=== PATIENT | female | born 1985 | race Two or more races ===

== ENCOUNTER 2021-03-29 08:45 | Outpatient (REF) | payer OTHER, SELFPAY ==
--- NOTE | ~2021-03-29 | MR_ITS ---
EXAMINATION: MR BRAIN WITHOUT AND WITH CONTRAST MR ORBITS WITHOUT AND WITH CONTRAST CLINICAL INFORMATION: Visual field loss. COMPARISON: None available. TECHNIQUE: MRI of the brain and orbits was obtained using routine sequences without and following the administration of 5.5 mL of Gadavist intravenous contrast. FINDINGS: No focal restricted diffusion is demonstrated to suggest acute or subacute cerebral ischemia. No evidence of acute or chronic hemorrhagic products on heme-sensitive imaging. Few nonspecific scattered periventricular and deep white matter T2 FLAIR hyperintensities, most notably in the deep white matter of the right parietal lobe and anterior left frontal lobe. Associated 0.6 cm focus of enhancement within the deep white matter of the right parietal lobe. No additional abnormal intracranial enhancement. The ventricles are normal in morphology and size. No abnormal mass effect. No midline shift. No significant preseptal or retrobulbar edema. Normal appearance of the globes. Normal symmetric appearance of the extraocular musculature. No abnormalities of the intraconal or extraconal adipose tissue. There is a 1 cm segment of enhancement and edema within the intraorbital segment of the right optic nerve. Normal appearance of the left optic nerve. Normal appearance of the lacrimal glands. No orbital fluid collections. No abnormalities of the orbital apices. Normal appearance of the optic chiasm. Normal appearance of the pituitary gland and infundibulum. Normal appearance of the cavernous sinuses without abnormal filling defects. No demonstrated abnormalities of the intracranial internal carotid or anterior cerebral arteries. Normal arterial and venous vascular flow voids are present. The visualized premaxillary, retromaxillary, pterygopalatine fossa, and temporal fossa adipose tissue is maintained. Normal, homogeneous marrow signal. Mild mucosal thickening in the paranasal sinuses. Small mucous retention cyst within the right maxillary sinus. No signal abnormalities within the mastoid. MR/MR orbits face neck wo/w con IMPRESSION: Few scattered T2 FLAIR hyperintensities within the deep white matter. There is enhancement associated with one of these lesions in the right parietal lobe consistent a multi-aged process. There is also a 1 cm segment of enhancement and edema within the right optic nerve suggestive of underlying optic neuritis. Although not fully specific, this constellation of findings is suggestive of a demyelinating process.
== END 2021-03-29 08:46 | disposition home or self-care (01) ==
LOC: HO.MRI 08:45
PROVIDERS: PCP Internal Medicine; Visit Provider Ophthalmology
DX: H54.61 Unqualified visual loss, right eye, normal vision left eye (principal); H53.50 Unspecified color vision deficiencies; H46.11 Retrobulbar neuritis, right eye; R51.9 Headache, unspecified
CPT/HCPCS: 70543; 70553; A9585

== ENCOUNTER 2021-04-30 14:56 | Outpatient (REF) | payer OTHER, SELFPAY ==
[2021-04-30 15:47] LABS: MANUAL DIFF FLAG NO
[2021-04-30 15:52] LABS: Basophils Percent Auto 0.7 % (0-2); Eosinophils Absolute Auto 0.1 X10*3/uL (0.0-0.4); Eosinophils Percent Auto 2.4 % (0-4); Hematocrit 40.1 % (37-47); Hemoglobin 13.1 g/dl (12.0-16.0); Imm Gran Abs Auto 0.01 X10*3/uL (0.00-0.03); Imm Gran Pct Auto 0.2 % (0.0-0.4); Lymphocytes Absolute Auto 1.1 X10*3/uL (1.2-4.9); Lymphocytes Percent Auto 20.6 % (20-40); Mean Corpuscular HGB Conc 32.7 g/dl (31.0-35.0); Mean Corpuscular Hemoglobin 28.9 pg (27.0-33.0); Mean Corpuscular Volume 88.3 fL (80-98); Monocytes Absolute Auto 0.5 X10*3/uL (0.1-1.2); Monocytes Percent Auto 8.8 % (2-11); Neutrophils Absolute Auto 3.7 X10*3/uL (2.0-8.3); Neutrophils Percent Auto 67.3 % (45-73); Platelet Count 321 X10*3/uL (160-400); Red Blood Count 4.54 X10*6/uL (4.20-5.50); Red Cell Distribution Width 12.1 % (11.0-16.0); White Blood Count 5.4 X10*3/uL (4.8-10.8)
[2021-04-30 16:28] LABS: Alanine Aminotransferase 9 U/L (0-31); Albumin Level 4.4 g/dL (3.5-5.0); Alkaline Phosphatase 61 U/L (39-117); Anion Gap 11 (12-20); Aspartate Amino Transferase 10 U/L (5-31); Bilirubin Direct 0.3 mg/dL (0.0-0.5); Bilirubin Total 0.7 mg/dL (0.0-1.0); Blood Urea Nitrogen 10 mg/dL (9-16); Calcium 9.5 mg/dL (8.4-10.2); Carbon Dioxide 29 mmol/L (22-29); Chloride 105 mmol/L (96-108); Estimated Glomerular Filt Rate > 60; Glucose Random 117 mg/dL (60-115); Potassium 4.7 mmol/L (3.3-5.1); Sodium 140 mmol/L (135-145); Total Protein 6.8 g/dL (6.5-8.0)
[2021-04-30 16:54] LABS: Erythrocyte Sedimentation Rate 2 MM/HR (0-20)
[2021-05-01 08:10] LABS: Syphilis Screen Nonreactive (Nonreactive)
[2021-05-01 13:06] LABS: Lyme Abs Screen <0.90 index
[2021-05-02 23:21] LABS: Anti Nuclear Antibody Screen POSITIVE (NEGATIVE)
[2021-05-06 20:22] LABS: JCV Antibody INDETERMINATE
[2021-05-06 20:41] LABS: JCV Ab Inhibition FINAL RSLT: POSITIVE
== END 2021-04-30 14:57 | disposition home or self-care (01) ==
LOC: HO.LAB 14:56
PROVIDERS: PCP Internal Medicine; Visit Provider Psychiatry & Neurology Neurology
DX: G35 Multiple sclerosis (principal)
CPT/HCPCS: 36415; 80048; 80076; 85025; 85652; 86038; 86039; 86617; 86618; 86711; 86780

== ENCOUNTER 2021-05-07 08:35 | Outpatient (REF) | payer OTHER, SELFPAY | END 2021-05-07 08:36 | disposition home or self-care (01) | LOC: HO.MDS 08:35 | PROVIDERS: PCP Internal Medicine; Visit Provider Psychiatry & Neurology Neurology | DX: G35 Multiple sclerosis (principal) | CPT/HCPCS: 96365; J2930 ==

== ENCOUNTER 2021-05-08 08:31 | Outpatient (REF) | payer OTHER, SELFPAY | END 2021-05-08 08:32 | disposition home or self-care (01) | LOC: HO.MDS 08:31 | PROVIDERS: PCP Internal Medicine; Visit Provider Psychiatry & Neurology Neurology | DX: G35 Multiple sclerosis (principal) | CPT/HCPCS: 96365; J2930 ==

== ENCOUNTER 2021-05-09 08:32 | Outpatient (REF) | payer OTHER, SELFPAY | END 2021-05-09 08:33 | disposition home or self-care (01) | LOC: HO.MDS 08:32 | PROVIDERS: PCP Internal Medicine; Visit Provider Psychiatry & Neurology Neurology | DX: G35 Multiple sclerosis (principal) | CPT/HCPCS: 96365; J2930 ==

== ENCOUNTER 2021-05-21 08:02 | Outpatient (REF) | payer OTHER, SELFPAY ==
[2021-05-21] VITALS (8 sets, daily range): BP systolic 99–107; BP diastolic 57–67; PULSE 68–90; RESP 16–18; TEMP 36.9–37.1; O2SAT 99–100; BMI 19.5
[2021-05-21 09:22] LABS: CSF Appearance Clear, Colorless; CSF Tube # 1
[2021-05-21 09:28] LABS: Appearance CSF CLEAR; CSF Tube # 4
[2021-05-21 09:29] LABS: CSF Monos 5 %; CSF Other Cells % 0 %; Color CSF COLORLESS; Lymphocytes CSF 95 %; Neutrophils CSF 0 %; Red Blood Cell CSF 6 MM*3; White Blood Cell CSF 4 MM*3
[2021-05-21 09:32] LABS: Glucose CSF 54 mg/dL; Total Protein CSF 22.8 mg/dL (15-45)
[2021-05-21 09:46] LABS: Oligoclonal Serum Yes
[2021-05-24 23:37] LABS: Albumin 4.1 g/dL (3.5-5.2); Albumin, CSF 17.7 mg/dL (8.0-42.0); IgG 655 mg/dL (600-1640); IgG Synthesis Rate 9.2 mg/24 h (-9.9-3.3); IgG, CSF 3.6 mg/dL (0.8-7.7)
== END 2021-05-21 11:05 | disposition home or self-care (01) ==
LOC: HO.MS 08:02
PROVIDERS: PCP Internal Medicine; Visit Provider Psychiatry & Neurology Neurology
PROC: 009U3ZZ Drainage of Spinal Canal, Percutaneous Approach (ICD-10-PCS; CPT 62270; principal; 2021-05-21 08:00)
DX: G35 Multiple sclerosis (principal); H46.9 Unspecified optic neuritis; G43.109 Migraine with aura, not intractable, without status migrainosus; G43.009 Migraine without aura, not intractable, without status migrainosus
CPT/HCPCS: 62272; 82042; 82945; 83916; 84157; 87015; 87070; 87205; 89051

== ENCOUNTER 2021-06-03 09:20 | Outpatient (REF) | payer OTHER, SELFPAY ==
[2021-06-03 11:23] LABS: Rheumatoid Factor < 15.0 IU/mL (<15.0)
[2021-06-04 14:51] LABS: Complement C3 107 mg/dL (83-193)
[2021-06-04 15:20] LABS: Anti DNA DS Antibody 2 IU/mL
== END 2021-06-03 09:21 | disposition home or self-care (01) ==
LOC: HO.LAB 09:20
PROVIDERS: PCP Internal Medicine; Visit Provider Psychiatry & Neurology Neurology
DX: G37.9 Demyelinating disease of central nervous system, unspecified (principal)
CPT/HCPCS: 36415; 86160; 86225; 86431

== ENCOUNTER 2021-06-12 09:14 | Outpatient (REF) | payer OTHER, SELFPAY ==
[2021-06-12 10:57] LABS: Vitamin D 25-OH Total 11.5 ng/mL (>30)
[2021-06-12 11:12] LABS: Vitamin B12 246 pg/mL (200-900)
[2021-06-13 08:53] LABS: HIV AB/AG Nonreactive (Nonreactive); HIV Num 1 0.06 S/CO (0.00-0.99)
[2021-06-14 11:55] LABS: IgA 239 mg/dL (47-310); IgG 786 mg/dL (600-1640); IgM 154 mg/dL (50-300)
== END 2021-06-12 09:15 | disposition home or self-care (01) ==
LOC: HO.LAB 09:14
PROVIDERS: PCP Internal Medicine; Visit Provider Psychiatry & Neurology Neurology
DX: G37.9 Demyelinating disease of central nervous system, unspecified (principal)
CPT/HCPCS: 36415; 82306; 82607; 82784; 86334; 87389

== ENCOUNTER 2023-11-26 09:00 | Outpatient (RCR) | payer OTHER, SELFPAY ==
[2023-11-24 09:23] VITALS: BP 101/64; PULSE 70; RESP 18; TEMP 36.8; O2SAT 98; BMI 21.3
[2023-11-24] MEDS: methylPREDNISolone Sod Succ 500 MG in 0.9 % Sodium Chloride 50 ML 50 MG IV (09:34)
--- NOTE | 2023-11-24 09:52 | HO.INF ---
#[id number] ANGIO TO RIGHT A/C lft in as per patient request and md order. dsd over site- no s/sx of infection noted.
[2023-11-25 09:21] VITALS: BP 101/56; PULSE 62; RESP 16; TEMP 36.8; O2SAT 99
[2023-11-25] MEDS: methylPREDNISolone Sod Succ 500 MG in 0.9 % Sodium Chloride 50 ML 50 MG IV (09:37)
[2023-11-25 10:43] VITALS: BP 101/63; PULSE 64; RESP 16; O2SAT 98
[2023-11-26 09:22] VITALS: BP 108/60; PULSE 78; RESP 16; TEMP 36.4; O2SAT 99
[2023-11-26] MEDS: methylPREDNISolone Sod Succ 500 MG in 0.9 % Sodium Chloride 50 ML 50 MG IV (09:27)
[2023-11-26] MEDS: 0.9 % Sodium Chloride Flush 10 ML SYRINGE 5 ML IVFLUSH (10:39)
== END 2023-11-26 11:15 | disposition home or self-care (01) ==
LOC: HO.INF 09:00
PROVIDERS: Visit Provider Psychiatry & Neurology Neurology
DX: G35 Multiple sclerosis (principal)
CPT/HCPCS: 96365; J2919; J2930

== ENCOUNTER 2023-12-21 09:21 | Outpatient (REF) | payer OTHER, SELFPAY ==
--- NOTE | ~2023-12-21 | MR_ITS ---
EXAMINATION: MR BRAIN WITHOUT AND WITH CONTRAST CLINICAL INFORMATION: Multiple sclerosis COMPARISON: MRI brain on 03/29/2021 TECHNIQUE: Multiplanar, multisequence MRI of the brain was obtained before and after the intravenous administration of 6.5 mL Gadavist. FINDINGS: Redemonstration of T2/FLAIR hyperintense foci scattered through the periventricular, subcortical, and juxtacortical white matter of the supratentorium. Some previously described foci are no longer present, for example previously seen focus in the left frontal lobe and right temporal lobe. There has been interval development of new foci as follows: -Hyperintense focus in the left periventricular white matter/centrum semiovale bilaterally (series 7, image 18 of 26) -Hyperintense focus in the right frontal lobe subcortical white matter (image 20) -Hyperintense focus in the left parietal lobe subcortical white matter (image 15) Hyperintense focus in the left temporal lobe subcortical white matter (image 13). Mild disc lesions demonstrate associated restricted diffusion or enhancement. No suspicious infratentorial lesion. There is a focus of FLAIR hyperintensity involving the anterior aspect of the spinal cord at the level of C1-C2 which is only seen on the sagittal T2 FLAIR sequence (series 4, image 15 of 29), not present on prior study. No abnormal intraparenchymal enhancement. No acute intracranial hemorrhage or infarct. No midline shift or hydrocephalus. No acute extra-axial fluid collections. The osseous structures are unremarkable. The pituitary gland, pineal gland and remaining midline structures are unremarkable. No orbital pathology. Mucus retention cysts in the right maxillary sinus. The mastoid air cells are clear. MR/MR head/brain wo/w con IMPRESSION: -Redemonstration of T2/FLAIR hyperintense foci scattered through the periventricular, subcortical, and juxtacortical white matter of the supratentorium. Some previously described foci have resolved in the interval while new lesions have developed. No associated restricted diffusion or enhancement. -Interval development of additional FLAIR hyperintense focus in the anterior aspect of the cervical spinal cord at the level of C1-C2.
[2023-12-21] MEDS: gadobutroL 7.5 ML VIAL IVPUSH (10:39)
== END 2023-12-21 09:22 | disposition home or self-care (01) ==
LOC: HO.MRI 09:21
PROVIDERS: PCP Internal Medicine; Visit Provider Psychiatry & Neurology Neurology
DX: G35 Multiple sclerosis (principal)
CPT/HCPCS: 70553; A9585

== ENCOUNTER 2023-12-24 09:10 | Outpatient (REF) | payer OTHER, SELFPAY ==
[2023-12-24 09:48] LABS: Hematocrit 39.5 % (37.0-47.0); Mean Corpuscular HGB Conc 32.9 g/dl (31.0-35.0); Mean Corpuscular Hemoglobin 28.8 pg (27.0-33.0); Mean Corpuscular Volume 87.6 fL (80.0-98.0); Mean Platelet Volume 9.3 fL (9.4-12.3); Platelet Count 318 X10*3/uL (160-400); Red Blood Count 4.51 X10*6/uL (4.20-5.50); Red Cell Distribution Width 12.6 % (11.0-16.0); White Blood Count 3.8 X10*3/uL (4.8-10.8)
[2023-12-24 10:40] LABS: Alanine Aminotransferase 11 U/L (0-31); Albumin Level 4.3 g/dL (3.5-5.0); Alkaline Phosphatase 53 U/L (39-117); Aspartate Amino Transferase 11 U/L (5-31); Bilirubin Direct 0.2 mg/dL (0.0-0.5); Bilirubin Total 0.5 mg/dL (0.0-1.0); Total Protein 6.8 g/dL (6.5-8.0)
[2023-12-30 23:10] LABS: JCV Ab Inhibition FINAL RSLT: NEGATIVE
[2023-12-30 23:24] LABS: JCV Antibody INDETERMINATE; JCV Index Value 0.27
== END 2023-12-24 09:11 | disposition home or self-care (01) ==
LOC: HO.LAB 09:10
PROVIDERS: Visit Provider Psychiatry & Neurology Neurology
DX: G35 Multiple sclerosis (principal)
CPT/HCPCS: 36415; 80076; 85027; 86711

== ENCOUNTER 2024-04-12 08:50 | Outpatient (AMB) | payer BC, SELFPAY ==
[2024-04-12 08:52] VITALS: BP 108/72; PULSE 67; O2SAT 99; BMI 21.0
--- NOTE | 2024-04-12 08:52 | A.OFFPC_ITS ---
Vital Signs 04/12/24 08:52 Height 5 ft 5 in Weight 126 lb BMI 21.0 BP 108/72 Blood Pressure Location Lt brachial Position Sitting Pulse 67 Pulse Source Pulse Oximeter Pulse Oximetry (%) 99 Oxygen Delivery Method Room Air Intake Visit Reasons: OVERDUE ANNUAL PE Metallurgist Process Required: No Accompanied by: Self / Same As Patient Allergies No Known Allergies Allergy (Verified 04/12/24 09:12) N.K.D.A. Allergy (Unknown, Uncoded 04/12/24 09:12) Unknown Medication List - Last Reconciled 04/12/24 by Sade Reddy MD ofatumumab (Kesimpta Pen) 20 mg subcut QWEEK Tobacco use date assessed: 04/12/24 Dental Screening Dental Screen Date: 04/12/24 Did you have a dental visit in the last 12 months?: Yes Did you have a dental problem in the last 6 months where you did not have access to dental care?: No Was dental information given to patient?: Patient has dentist HPI HPI Comments History of Present Illness Details This is a 38-year-old female with multiple sclerosis and mild major depression that comes for her physical exam. Multiple sclerosis is follow by Neurology. She just recently started the medication. Depression has been stable without the need for medication and she declines counseling also. Pap smear done this month was normal with HPV negative. Has not had a mammogram yet and I will order it. No chest pain or shortness on breath. [facility] Family History (Updated 04/12/24 @ 09:18 by Sade Reddy MD) Father Heart problem Mother Osteoporosis Other Diabetes HTN (hypertension) Social History (Updated 04/12/24 @ 09:18 by Sade Reddy MD) Housing: House Alcohol intake: current Alcohol intake frequency: holidays/special occasions only Alcohol type: other Patient Tobacco Use Status: Never used Tobacco e-Cigarette/Vaping Use: Never Used service: No Current occupational status: employed Current occupational exposures/hazards: No Cognitive needs: No Hearing needs: No Vision needs: No Questionnaire PHQ-9 Over the last 2 weeks, how often have you been bothered by any of the following problems? 1. Little interest or pleasure in doing things: several days 2. Feeling down, depressed, or hopeless: not at all 3. Trouble falling or staying asleep, or sleeping too much: not at all 4. Feeling tired or having little energy: more than half the days 5. Poor appetite or overeating: not at all 6. Feeling bad about yourself - or that you are a failure or have let yourself or your family down: several days 7. Trouble concentrating on things, such as reading the newspaper or watching television: not at all 8. Moving or speaking so slowly that other people could have noticed. Or the opposite - being so fidgety or restless that you have been moving around a lot more than usual: not at all 9. Thoughts that you would be better off or of hurting yourself in some way: not at all Total score: 4 Depression Screening Interpretation: Positive Depression Screening Follow-up: Existing condition, Follow-up Visit Requested and Declines treatment Depression Screening Done: Yes 68420 - PHQ-9 Billing: Yes Source: Developed by Drs. Keenan Luu, Cassidy Singh, Italo Dubon and colleagues, with an educational lina from [employer]. Thrive Questionnaire Date Thrive assessed: 04/10/24 I am a: Patient What is your living situation today?: I have a steady place to live Within the past 12 months, did the food you bought not last and you didn't have the money to get more?: Never true Within the past 12 months, did you worry whether your food would run out before you got money to buy more?: Never true Do you have trouble paying for medicines?: No Do you have trouble getting transportation to medical appointments?: No Do you have trouble paying your heating and electricity bill?: No Do you have trouble taking care of your child, family member or friend?: No Do you have trouble with day-to-day activities such as bathing, preparing meals, shopping, managing finances, etc.?: No Are you currently unemployed and looking for a job?: No Are you interested in more education?: No Please select the resources that you would like help with: None Currently or been in a relationship where the following occur: No concerns reported THRIVE Score: 0 AUDIT C Alcohol Use Questionnaire (AUDIT-C) 1. How often do you have a drink containing alcohol?: Never 2. How many drinks containing alcohol do you have on a typical day when you are drinking?: 1 or 2 3. How often do you have six or more drinks on one occasion?: Never Total Score: 0 Score Reviewed/Action Taken: No YAS-7 AMB Questionnaire YAS-7 Date YAS - 7 assessed: 04/12/24 Feeling nervous, anxious, or on edge: 1 = Several days Not being able to stop or control worryin = Several days Worrying too much about different things: 1 = Several days Trouble relaxin = Several days Being so restless that it is hard to sit still: 0 = Not at all Becoming easily annoyed or irritable: 1 = Several days Feeling afraid as if something awful might happen: 0 = Not at all Total YAS-7 score (0-4 normal; 5-9 mild; 10-14 moderate; 15-21 severe): 5 Source: Developed by Drs. Keenan Luu, Cassidy Singh, Italo Dubon and colleagues, with an educational lina from [employer]. YAS-7 Assessment Billing YAS-7 Assessment Tool: YAS-7 Assessment 83658 Review of Systems Const All systems reviewed & are unremarkable except as noted in HPI and below Card Denies chest pain at rest, Denies chest pain with activity, Denies edema, Denies irregular heart rhythm, Denies claudication, Denies dyspnea, Denies dyspnea on exertion, Denies orthopnea, Denies paroxysmal nocturnal dyspnea and Denies slow heart rate Resp Denies cough, Denies dyspnea and Denies dyspnea on exertion Neuro Denies lack of coordination Physical exam (Primary Care) Vital Signs: Last Vital Signs Pulse 67 04/12/24 08:52 BP 108/72 04/12/24 08:52 Pulse Ox 99 04/12/24 08:52 Oxygen Delivery Method Room Air 04/12/24 08:52 BMI result Body Mass Index 21.0 Tobacco/Smoking Status: Tobacco use Status Tobacco use date assessed 04/12/24 04/12/24 09:05 Patient Tobacco Use Status Never used Tobacco 04/12/24 09:18 e-Cigarette/Vaping Use Never Used 04/12/24 09:18 PHQ-9: PHQ-9 Score PHQ-9: Total score 4 04/12/24 09:15 Depression Screening Interpretation: Positive Depression Screening Follow-up: Existing condition, Follow-up Visit Requested and Declines treatment Thrive Assessment: Date of Thrive Assessment Date Thrive assessed 04/10/24 04/12/24 09:05 Currently or been in a relationship where the following occur: No concerns reported HENIA Head: Yes normal to inspection, Yes normocephalic and Yes atraumatic Ears: external ears normal Eyes General: appearance normal, both eyes and all related structures Eyelids: Yes eyelids normal Conjunctivae: conjunctivae normal Neck Neck: Yes normal visual inspection and Yes supple Resp Effort & Inspection: normal respiratory effort Auscultation: clear to auscultation bilaterally Cardio Jugular venous distension: no JVD Rate: regular rate Rhythm: regular rhythm Heart sounds: S1 normal heart sound present and S2 normal heart sound present GI Inspection: Yes normal to inspection Palpation (GI): Soft to palpation and nontender Auscultation: normal bowel sounds Skin General skin exam: no rashes or lesions noted Neuro General: no focal motor deficits Extrem General: Yes full ROM Psych Appearance: grossly normal Assessment and Plan Assessment & Plan (1) Physical exam: Code(s): Z00.00 - Encounter for general adult medical examination without abnormal findings Plan: Repeat in a year. (2) Multiple sclerosis: Code(s): G35 - Multiple sclerosis Plan: Continue Kesympta. Follow with Neurology. (3) Mild major depression: Code(s): F32.0 - Major depressive disorder, single episode, mild Plan: Follow-up visit requested. Declines treatment at the moment. Orders: Orders Vitamin B12 and Folate Today E53.8 - Deficiency of other specified B group vitamins Comprehensive [place]. Panel Fast Today Z00.00 - Encounter for general adult medical examination without abnormal findings Complete Blood Count Auto Diff Today G35 - Multiple sclerosis MM screening mammo BI Today Z12.31 - Encounter for screening mammogram for malignant neoplasm of breast Vitamin D 25-OH Total Today E55.9 - Vitamin D deficiency, unspecified Lipid Panel Today Z00.00 - Encounter for general adult medical examination without abnormal findings Coding Level of Care Code Est Pt Prev Care 40-64y(13633) Diagnoses Physical exam Z00.00 Multiple sclerosis G35 Mild major depression F32.0 Additional Codes YAS-7 Assessment Billing - YAS-7 Assessment Tool: YAS-7 Assessment [id number] ([id number]) Time Spent (min) 30
== END 2024-04-12 09:25 | disposition home or self-care (01) ==
PROVIDERS: PCP Internal Medicine; Visit Provider Internal Medicine
DX: Z00.00 Encounter for general adult medical examination without abnormal findings (principal); G35 Multiple sclerosis; F32.0 Major depressive disorder, single episode, mild
CPT/HCPCS: 99396

== ENCOUNTER 2024-04-12 09:34 | Outpatient (REF) | payer BC, SELFPAY ==
[2024-04-12 09:49] LABS: MANUAL DIFF FLAG NO
[2024-04-12 09:58] LABS: Eosinophils Absolute Auto 0.1 X10*3/uL (0.0-0.4); Eosinophils Percent Auto 3.6 % (0-4); Hemoglobin 13.3 g/dl (12.0-16.0); Imm Gran Abs Auto 0.01 X10*3/uL (0.00-0.03); Imm Gran Pct Auto 0.3 % (0.0-0.4); Lymphocytes Absolute Auto 0.9 X10*3/uL (1.2-4.9); Lymphocytes Percent Auto 22.3 % (20-40); Mean Corpuscular HGB Conc 32.4 g/dl (31.0-35.0); Mean Corpuscular Hemoglobin 28.3 pg (27.0-33.0); Mean Corpuscular Volume 87.2 fL (80.0-98.0); Mean Platelet Volume 9.7 fL (9.4-12.3); Monocytes Absolute Auto 0.4 X10*3/uL (0.1-1.2); Monocytes Percent Auto 9.5 % (2-11); Neutrophils Absolute Auto 2.5 x10*3/uL (2.0-8.3); Neutrophils Percent Auto 63.3 % (45-73); Platelet Count 301 X10*3/uL (160-400); Red Cell Distribution Width 12.9 % (11.0-16.0); White Blood Count 3.9 X10*3/uL (4.8-10.8)
[2024-04-12 10:49] LABS: Alanine Aminotransferase 10 U/L (0-31); Albumin Level 4.4 g/dL (3.5-5.0); Alkaline Phosphatase 53 U/L (39-117); Anion Gap 8 (12-20); Aspartate Amino Transferase 12 U/L (5-31); Bilirubin Total 0.9 mg/dL (0.0-1.0); Blood Urea Nitrogen 11 mg/dL (9-16); Calcium 9.3 mg/dL (8.4-10.2); Carbon Dioxide 27 mmol/L (22-29); Chloride 109 mmol/L (96-108); Cholesterol 143 mg/dL (<200); Estimated Glomerular Filt Rate > 60; Glucose Fasting 92 mg/dL (60-99); HDL Cholesterol 46 mg/dL (>40); LDL Cholesterol Calculated 83 mg/dL (<100); Potassium 4.8 mmol/L (3.3-5.1); Sodium 139 mmol/L (135-145); Triglycerides 70 mg/dL (<150)
[2024-04-12 11:15] LABS: Folate 11.5 ng/mL (> or = 4.0); Vitamin B12 260 pg/mL (200-900)
== END 2024-04-12 09:35 | disposition home or self-care (01) ==
LOC: HO.LAB 09:34
PROVIDERS: PCP Internal Medicine; Visit Provider Internal Medicine
DX: Z00.00 Encounter for general adult medical examination without abnormal findings (principal); G35 Multiple sclerosis; E55.9 Vitamin D deficiency, unspecified; E53.8 Deficiency of other specified B group vitamins
CPT/HCPCS: 36415; 80053; 80061; 82306; 82607; 82746; 85025

== ENCOUNTER 2024-04-23 10:00 | Outpatient (REF) | payer BC, SELFPAY ==
--- NOTE | ~2024-04-23 | MM_ITS ---
EXAMINATION: MM SCREENING DIGITAL BREAST TOMOSYNTHESIS, BILATERAL CLINICAL INFORMATION: Screening. Asymptomatic. COMPARISON: Mammography: Baseline. TECHNIQUE: Digital breast mammography with tomosynthesis is performed in both the craniocaudal and mediolateral oblique views along with computer-aided detection (CAD). FINDINGS: The breasts are heterogeneously dense, which may obscure small masses (ACR BI-RADS breast composition Category c). Left: Asymmetry superior breast/low axilla on MLO view. Focal asymmetry upper outer breast anterior depth. No suspicious calcifications or other abnormal findings. Right: Asymmetry superior breast/low axilla on MLO view. Asymmetry medial breast middle depth on cc view. No suspicious calcifications or other abnormal findings. MM/MM tomosynthesis screening BI IMPRESSION: Additional imaging is recommended ASSESSMENT: BI-RADS BI-RADS 0 - Incomplete: Needs additional Imaging. RECOMMENDATION: 1. Additional views of the bilateral breasts 2. Targeted ultrasound if warranted after review of the additional views. 3. Radiology department staff will contact the patient for additional imaging. Additional Imaging required This examination should not preclude the clinical evaluation of a suspicious palpable abnormality. This patient's information was entered into a reminder system with a target due date for their next mammogram. Electronically signed by: Shara Cheng DO 05/09/2024 06:18 AM EDT
== END 2024-04-23 10:01 | disposition home or self-care (01) ==
LOC: HO.MAMMO 10:00
PROVIDERS: PCP Internal Medicine; Visit Provider Internal Medicine
DX: Z12.31 Encounter for screening mammogram for malignant neoplasm of breast (principal)
CPT/HCPCS: 77063; 77067

== ENCOUNTER → 2024-04-23 10:15 | Outpatient (BNV) | payer BC, SELFPAY | PROVIDERS: PCP Internal Medicine; Visit Provider Internal Medicine | DX: Z12.31 Encounter for screening mammogram for malignant neoplasm of breast (principal) | CPT/HCPCS: 77063; 77067 ==

== ENCOUNTER 2024-06-27 13:18 | Outpatient (REF) | payer BC, SELFPAY ==
--- NOTE | ~2024-06-27 | MM_ITS ---
EXAMINATION: MM DIAGNOSTIC DIGITAL BREAST TOMOSYNTHESIS, BILATERAL US BREAST LIMITED, RIGHT MAMMOGRAPHY: CLINICAL INFORMATION: Diagnostic exam: Follow-up for bilateral asymmetries and bilateral focal asymmetries seen on baseline screening mammography. COMPARISON: Mammography: 04/23/2024 baseline exam. TECHNIQUE: Digital breast tomosynthesis is performed in the following views: 3-D spot compression left CC, right CC, left MLO x2, and right MLO views obtained. Computer-aided diagnosis was used for this study. This was followed by targeted right breast ultrasound. FINDINGS: The breasts are heterogeneously dense, which may obscure small masses (ACR BI-RADS breast composition Category c). Diagnostic views demonstrate no persistent abnormality regarding the upper one view asymmetry seen on the MLO views. On the left, diagnostic view demonstrates no persistent abnormality regarding the left upper outer anterior focal asymmetry. These findings are consistent with superimposition artifact of normal overlapping breast tissues. On the right, diagnostic view demonstrates medial right breast middle depth, possibly correlating to upper right breast, is a small circumscribed oval mass measuring 7 mm in diameter. We will correlate this with ultrasound. No additional abnormalities. ULTRASOUND: CLINICAL INFORMATION: As above. COMPARISON: None TECHNIQUE: Targeted sonographic evaluation right breast was performed using a high frequency linear transducer. Attention was given to the right breast upper inner quadrant in the suspected region of mammographic 7 mm oval mass. Selected archived documentation. FINDINGS: RIGHT BREAST: -At the 1:00 axis right breast, there is a minimally complicated cyst measuring 7 x 5 x 3 mm, correlating well with the mammographic focus of concern. In addition at 10:00, 4 cm from the nipple, there is a 5 x 3 x 4 mm minimally complicated cyst present. These findings are benign. There are no suspicious findings. MM/MM tomosynthesis added view BI IMPRESSION: 1. There are no findings suspicious for malignancy. 2. Minimally complicated benign cysts right breast at the 10:00 axis and 1:00 axis. No further follow-up required. 3. Recommend the patient return to routine annual screening. OVERALL ASSESSMENT: Mammography: BI-RADS 2 - Benign Findings Ultrasound: BI-RADS 2 - Benign Findings RECOMMENDATION: 1 year F/U This patient's information was entered into a reminder system with a target due date for their next mammogram. Electronically signed by: Daniele Lyons MD 06/27/2024 02:14 PM EST [facility]
== END 2024-06-27 13:19 | disposition home or self-care (01) ==
LOC: HO.MAMMO 13:18
PROVIDERS: PCP Internal Medicine; Visit Provider Internal Medicine
DX: N64.89 Other specified disorders of breast (principal)
CPT/HCPCS: 76642; 77062; 77066

== ENCOUNTER → 2024-06-27 13:30 | Outpatient (BNV) | payer BC, SELFPAY | PROVIDERS: PCP Internal Medicine; Visit Provider Radiology Diagnostic Radiology | DX: R92.8 Other abnormal and inconclusive findings on diagnostic imaging of breast (principal) | CPT/HCPCS: 76642; 77062; 77066 ==

== ENCOUNTER 2024-11-29 08:31 | Outpatient (AMB) | payer BC, SELFPAY ==
--- NOTE | 2024-11-29 08:54 | MHC.PC.OV ---
Vital Signs 11/29/24 08:55 Height 5 ft 5 in Weight 130 lb BMI 21.6 BP 112/70 Blood Pressure Location Lt brachial Position Sitting Intake Visit Reasons: possible hernia Manager Account Management Required: No Accompanied by: Self / Same As Patient Allergies No Known Allergies Allergy (Verified 11/29/24 09:06) N.K.D.A. Allergy (Unknown, Uncoded 11/29/24 09:06) Unknown Medication List - Last Reconciled 11/29/24 by Sade Reddy MD cholecalciferol (vitamin D3) 25 mcg PO DAILY 90 days ofatumumab (Kesimpta Pen) 20 mg subcut QWEEK Tobacco use date assessed: 11/29/24 Dental Screening Dental Screen Date: 11/29/24 Did you have a dental visit in the last 12 months?: Yes Did you have a dental problem in the last 6 months where you did not have access to dental care?: No Was dental information given to patient?: Patient has dentist HPI HPI Comments History of Present Illness Details The patient is a 38-year-old female presenting with abdominal discomfort potentially related to a hernia. She observed the presence of the hernia after her son's in 2011 and initially attributed it to body changes. The condition has progressively caused more discomfort over the last year, particularly around her menstrual cycle, with associated bloating and tenderness. In addition, she experiences constipation, leading to bloating and abdominal fullness. Recent notable constipation was relieved somewhat by using senna-containing stool softeners and consuming prunes. The hernia has not grown in size but is now more prominent and occasionally painful upon manipulation. Additionally, she has multiple sclerosis managed with Casimta without recent exacerbations. She has multiple sclerosis follow by Neurology which has been stable and has mild major depression in remission. [facility] Surgical History No pertinent past surgical history Family History Father Heart problem Mother Osteoporosis Other Diabetes HTN (hypertension) Social History Housing: House Alcohol intake: current Alcohol intake frequency: holidays/special occasions only Alcohol type: other Patient Tobacco Use Status: Never used Tobacco e-Cigarette/Vaping Use: Never Used Second Hand Smoke Exposure: No service: No Current occupational status: employed Current occupational exposures/hazards: No Cognitive needs: No Hearing needs: No Vision needs: No Questionnaire PHQ-9 Over the last 2 weeks, how often have you been bothered by any of the following problems? 1. Little interest or pleasure in doing things: not at all 2. Feeling down, depressed, or hopeless: not at all 3. Trouble falling or staying asleep, or sleeping too much: not at all 4. Feeling tired or having little energy: not at all 5. Poor appetite or overeating: not at all 6. Feeling bad about yourself - or that you are a failure or have let yourself or your family down: not at all 7. Trouble concentrating on things, such as reading the newspaper or watching television: not at all 8. Moving or speaking so slowly that other people could have noticed. Or the opposite - being so fidgety or restless that you have been moving around a lot more than usual: not at all 9. Thoughts that you would be better off or of hurting yourself in some way: not at all Total score: 0 Depression Screening Interpretation: Negative Depression Screening Done: Yes 30745 - PHQ-9 Billing: Yes Source: Developed by Drs. Keenan Luu, Cassidy Singh, Italo Dubon and colleagues, with an educational lina from [employer]. Thrive Questionnaire Date Thrive assessed: 11/29/24 I am a: Patient What is your living situation today?: I have a steady place to live Within the past 12 months, did the food you bought not last and you didn't have the money to get more?: Never true Within the past 12 months, did you worry whether your food would run out before you got money to buy more?: Never true Do you have trouble paying for medicines?: No Do you have trouble getting transportation to medical appointments?: No Do you have trouble paying your heating and electricity bill?: No Do you have trouble taking care of your child, family member or friend?: No Do you have trouble with day-to-day activities such as bathing, preparing meals, shopping, managing finances, etc.?: No Are you currently unemployed and looking for a job?: No Are you interested in more education?: No Please select the resources that you would like help with: None Currently or been in a relationship where the following occur: No concerns reported THRIVE Score: 0 AUDIT C Alcohol Use Questionnaire (AUDIT-C) 1. How often do you have a drink containing alcohol?: Monthly or less 2. How many drinks containing alcohol do you have on a typical day when you are drinking?: 1 or 2 3. How often do you have six or more drinks on one occasion?: Never Total Score: 1 Score Reviewed/Action Taken: No YAS-7 AMB Questionnaire YAS-7 Date YAS - 7 assessed: 11/29/24 Feeling nervous, anxious, or on edge: 0 = Not at all Not being able to stop or control worryin = Not at all Worrying too much about different things: 0 = Not at all Trouble relaxin = Not at all Being so restless that it is hard to sit still: 0 = Not at all Becoming easily annoyed or irritable: 0 = Not at all Feeling afraid as if something awful might happen: 0 = Not at all Total YAS-7 score (0-4 normal; 5-9 mild; 10-14 moderate; 15-21 severe): 0 Source: Developed by Drs. Keenan Luu, Cassidy Singh, Italo Dubon and colleagues, with an educational lina from [employer]. YAS-7 Assessment Billing YAS-7 Assessment Tool: YAS-7 Assessment 23185 Review of Systems Const All systems reviewed & are unremarkable except as noted in HPI and below Card Denies chest pain at rest, Denies chest pain with activity, Denies edema, Denies irregular heart rhythm, Denies claudication, Denies dyspnea, Denies dyspnea on exertion, Denies orthopnea, Denies paroxysmal nocturnal dyspnea and Denies slow heart rate Resp Denies cough, Denies dyspnea and Denies dyspnea on exertion GI Denies abdominal pain, Denies change in bowel habits, Denies excessive flatus, Denies nausea and Denies vomiting Physical exam (Primary Care) Vital Signs: Last Vital Signs BP 112/70 11/29/24 08:55 BMI result Body Mass Index 21.6 Tobacco/Smoking Status: Tobacco use Status Tobacco use date assessed 11/29/24 11/29/24 09:00 Patient Tobacco Use Status Never used Tobacco 11/29/24 09:00 e-Cigarette/Vaping Use Never Used 11/29/24 09:00 PHQ-9: PHQ-9 Score PHQ-9: Total score 0 11/29/24 09:00 Depression Screening Interpretation: Negative Thrive Assessment: Date of Thrive Assessment Date Thrive assessed 11/29/24 11/29/24 09:00 Currently or been in a relationship where the following occur: No concerns reported Resp Effort & Inspection: normal respiratory effort Auscultation: clear to auscultation bilaterally Cardio Jugular venous distension: no JVD Rate: regular rate Rhythm: regular rhythm Heart sounds: S1 normal heart sound present and S2 normal heart sound present GI Palpation (GI): Palpable mass present (periumbilical mass) Psych Appearance: grossly normal Coding Level of Care Code Est Pt Level 4 (66759) Complex EM visit Add On G2211 Diagnoses Abdominal wall lump R22.2 Multiple sclerosis G35 Hypovitaminosis D E55.9 Mild major depression F32.0 Additional Codes PHQ-9 - 62845 - PHQ-9 Billing: Yes ([id number]) YAS-7 Assessment Billing - YAS-7 Assessment Tool: YAS-7 Assessment 30103 ([id number]) Time Spent (min) 23 Assessment & Plan Assessment & Plan (1) Abdominal wall lump: Code(s): R22.2 - Localized swelling, mass and lump, trunk Category: Medical (2) Multiple sclerosis: Code(s): G35 - Multiple sclerosis Category: Medical (3) Hypovitaminosis D: Code(s): E55.9 - Vitamin D deficiency, unspecified Category: Medical (4) Mild major depression: Code(s): F32.0 - Major depressive disorder, single episode, mild Category: Medical Plan We plan to perform an ultrasound to assess the hernia's characteristics and determine the appropriateness of surgical intervention. For constipation management, I advised the continued use of stool softeners and dietary measures, such as prunes. A surgical referral will follow the ultrasound evaluation findings if indicated. Patient was informed and verbally consented to the use of an ambient scribe for clinic note documentation during this visit. I informed the patient of the plan to perform an ultrasound to evaluate the hernia's characteristics, which will guide further surgical management. I explained the potential necessity of surgical intervention based on the ultrasound findings and the importance of managing constipation in the meantime to reduce abdominal discomfort. We discussed the use of stool softeners and dietary adjustments as effective short-term relief options. The patient was advised that she will receive a call to schedule the ultrasound, and we will plan further based on those results. Orders: Orders US abdomen limited Today R22.2 - Localized swelling, mass and lump, trunk Referrals General Surgery Referral R22.2 - Localized swelling, mass and lump, trunk Patient Instructions: - Await a call to schedule the abdominal ultrasound - Continue using stool softeners as needed - Maintain a high-fiber diet and stay hydrated to manage constipation - Monitor for any increase in hernia size or symptoms and report if these occur
[2024-11-29 08:55] VITALS: BP 112/70; BMI 21.6
== END 2024-11-29 09:14 | disposition home or self-care (01) ==
LOC: HO.HMCH 08:32
PROVIDERS: PCP Internal Medicine; Visit Provider Internal Medicine
DX: R22.2 Localized swelling, mass and lump, trunk (principal); G35 Multiple sclerosis; E55.9 Vitamin D deficiency, unspecified; F32.0 Major depressive disorder, single episode, mild

== ENCOUNTER → 2024-11-29 08:31 | Outpatient (BNVA) | payer BC, SELFPAY | PROVIDERS: PCP Internal Medicine; Visit Provider Internal Medicine | DX: R22.2 Localized swelling, mass and lump, trunk (principal); G35 Multiple sclerosis; E55.9 Vitamin D deficiency, unspecified; F32.0 Major depressive disorder, single episode, mild | CPT/HCPCS: 96127 ==

== ENCOUNTER 2024-12-23 09:17 | Outpatient (REF) | payer BC, SELFPAY ==
--- NOTE | ~2024-12-23 | US_ITS ---
CLINICAL HISTORY: R22.2 - Localized swelling, mass and lump, trunk US abdominal wall nonvascular Comparison: None Findings: Sonographic evaluation in the area of clinical concern umbilical region demonstrated a fat containing periumbilical hernia neck measuring 7 mm body measuring 14 mm which did not reduce during the course of the exam. Impression: Non reducing fat containing periumbilical hernia This document has been electronically signed by: Carlos Ibarra MD on 12/23/2024 15:52:13
== END 2024-12-23 09:18 | disposition home or self-care (01) ==
LOC: HO.US 09:17
PROVIDERS: PCP Internal Medicine; Visit Provider Internal Medicine
DX: R22.2 Localized swelling, mass and lump, trunk (principal)
CPT/HCPCS: 76705

== ENCOUNTER → 2024-12-23 09:22 | Outpatient (BNV) | payer BC, SELFPAY | PROVIDERS: PCP Internal Medicine; Visit Provider Radiology Diagnostic Radiology | DX: K42.0 Umbilical hernia with obstruction, without gangrene (principal) | CPT/HCPCS: 76705 ==

== ENCOUNTER 2024-12-29 13:49 | Outpatient (AMB) | payer BC, SELFPAY ==
--- NOTE | 2024-12-29 14:04 | A.OFFVIS_ITS ---
Vital Signs 3 12/29/24 14:06 Height 5 ft 5 in Weight 131 lb BMI 21.8 BP 120/67 Blood Pressure Location Lt brachial Position Sitting Pulse 86 Intake Visit Reasons: Lump/ mass~ abdomen Intake Note: Patient is seen in office for evaluation of a possible hernia of the abdomen. Pt c/o: onset 13 yrs, started to bother, when eating feels bloated, full, tender, denies n/v/d admits to constipation, straining, no blood in stool us:12/23/24 (periumbilical henria) Certified Court/Medical Interpreter Required: No Accompanied by: Self / Same As Patient Allergies No Known Allergies Allergy (Verified 12/29/24 14:06) Medication List - Last Reconciled 12/29/24 by Bright Wills MD cholecalciferol (vitamin D3) 25 mcg PO DAILY 90 days ofatumumab (Kesimpta Pen) 20 mg subcut QWEEK HPI Comments Details: 39-year-old female patient presenting with a complaint of abdominal lump located above the umbilicus. She 1st noticed it approximately 6 months ago but actually may have had a even longer since the of her child 13 years ago. She denies significant pain but has noted some mild discomfort over the past several months. The lump seems to have increased in size as well. She denies any nausea, vomiting, fever or chills. She does know constipation but feels that this has been an ongoing problem. She denies a previous history of surgery in this location. [facility] Surgical History No pertinent past surgical history Family History Father Heart problem Mother Osteoporosis Other Diabetes HTN (hypertension) Social History Housing: House Alcohol intake: current Alcohol intake frequency: holidays/special occasions only Alcohol type: other Patient Tobacco Use Status: Never used Tobacco e-Cigarette/Vaping Use: Never Used Second Hand Smoke Exposure: No service: No Current occupational status: employed Current occupational exposures/hazards: No Cognitive needs: No Hearing needs: No Vision needs: No Review of Systems Const All systems reviewed & are unremarkable except as noted in HPI and below Physical Exam Vital Signs: Last Vital Signs Pulse 86 12/29/24 14:06 BP 120/67 12/29/24 14:06 BMI result Body Mass Index 21.8 Const General: cooperative and no acute distress Nutritional Appearance: well nourished Orientation/consciousness: patient oriented x3 Limitations: no limitations HEENT Head: Yes normocephalic and Yes atraumatic Ears: hearing grossly normal bilaterally Resp Effort & Inspection: normal respiratory effort, no audible wheezes, no cough and no respiratory distress Cardio Jugular venous distension: no JVD GI Other: Soft and nondistended, easily identified ventral hernia measuring approximately 1.5 cm in diameter. Hernia increases in size with Valsalva maneuvers but reduces with light pressure. No other midline abdominal wall hernias are identified. Inspection: Yes normal to inspection Abdomen image: 2 1. Site of palpable hernia approximately 1.5 cm diameter, reducible Skin Other: Warm, dry, no rash Neuro General: patient oriented x3 Extrem General: Yes no clubbing, cyanosis or edema Assessment & Plan Assessment & Plan (1) Ventral hernia without obstruction or gangrene: Code(s): K43.9 - Ventral hernia without obstruction or gangrene Category: Medical Plan 39-year-old female patient presenting with a palpable midline abdominal ventral hernia which has been increasing in size over the past 6 months. On examination the patient has a reducible ventral hernia measuring 1.5 cm in diameter with some mild discomfort to palpation. We discussed repair of this ventral hernia with mesh as a short-stay surgery. After a discussion of the procedure, risks, and alternatives, she consents to a repair of the ventral hernia with mesh. Coding Level of Care Code New Pt Level 4 (99288) Diagnoses Ventral hernia without obstruction or gangrene K43.9
[2024-12-29 14:06] VITALS: BP 120/67; PULSE 86; BMI 21.8
== END 2024-12-29 14:29 | disposition home or self-care (01) ==
LOC: HO.HGS 13:50
PROVIDERS: PCP Internal Medicine; Visit Provider Surgery
DX: K43.9 Ventral hernia without obstruction or gangrene (principal)
CPT/HCPCS: 99204

== ENCOUNTER 2025-01-19 08:21 | Day surgery (SDC) | payer BC, SELFPAY ==
[2025-01-17 09:20] VITALS: BMI 21.8
[2025-01-19 08:56] VITALS: BP 108/79; PULSE 83; RESP 20; TEMP 36.1; O2SAT 98; BMI 22.1
[2025-01-19] MEDS: Lactated Ringers 1,000 ML 100 ML IVCONT (08:59)
--- NOTE | 2025-01-19 10:26 | P.CONAN_ITS ---
Documented by User: Latosha Cook NP 01/18/25 09:31 HPI - Anesthesia Eval Consult details Narrative: 39yo F for Hernia Ventral Reducible MS tx'd with weekly infusion PMFSH Active Problems Active Problems: All Active Problems Ventral hernia without obstruction or gangrene (Acute) Abdominal wall lump (Acute) Hypovitaminosis D (Acute) Mild major depression (Acute) Physical exam (Acute) Multiple sclerosis (Acute) Past Medical History Medical History (Updated 01/18/25 @ 08:57 by Corie Mitchell RN) Multiple sclerosis Family History Family History Father Heart problem Mother Osteoporosis Other Diabetes HTN (hypertension) Surgical History Surgical History (Updated 01/19/25 @ 08:34 by Andria Cardenas RN) H/O tubal ligation No pertinent past surgical history Social History Social History Housing: House Alcohol intake: current Alcohol intake frequency: does not drink Alcohol type: other Patient Tobacco Use Status: Never used Tobacco e-Cigarette/Vaping Use: Never Used Second Hand Smoke Exposure: No Have you been hit, kicked, punched, or otherwise hurt by someone within the past year? If so, by whom?: No Are you DNR?: No Advance Directives: No Advance Directives Information Provided: Yes service: No Current occupational status: employed Current occupational exposures/hazards: No Cognitive needs: No Hearing needs: No Vision needs: No Meds Allergies Allergy/AdvReac Type Severity Reaction Status Date / Time No Known Allergies Allergy Verified 12/29/24 14:06 Home Medications ?Medication ?Instructions ?Recorded ?Confirmed ?Last Taken ?Type ofatumumab 20 mg/0.4 mL 20 mg subcut QWEEK 04/12/24 12/29/24 Unknown History subcutaneous pen injector (Kesimpta Pen) Exam Height,Weight and Vital Signs: Height 5 ft 5 in Weight 59.421 kg Assessment and Plan Assessment Anesthesia Assessment: Chart Reviewed Documented by User: Corie Perez DO 01/19/25 10:27 [facility] Past Medical History Medical History (Updated 01/18/25 @ 08:57 by Corie Mitchell, JERAMIE) Multiple sclerosis Family History Family History Father Heart problem Mother Osteoporosis Other Diabetes HTN (hypertension) Family history of problems with anesthesia: No Surgical History Surgical History (Updated 01/19/25 @ 08:34 by Andria Cardenas RN) H/O tubal ligation No pertinent past surgical history History of Problems with Anesthesia: No Social History Social History Housing: House Alcohol intake: current Alcohol intake frequency: does not drink Alcohol type: other Patient Tobacco Use Status: Never used Tobacco e-Cigarette/Vaping Use: Never Used Second Hand Smoke Exposure: No Have you been hit, kicked, punched, or otherwise hurt by someone within the past year? If so, by whom?: No Are you DNR?: No Advance Directives: No Advance Directives Information Provided: Yes service: No Current occupational status: employed Current occupational exposures/hazards: No Cognitive needs: No Hearing needs: No Vision needs: No Meds Allergies Allergy/AdvReac Type Severity Reaction Status Date / Time No Known Allergies Allergy Verified 12/29/24 14:06 Home Medications ?Medication ?Instructions ?Recorded ?Confirmed ?Last Taken ?Type ofatumumab 20 mg/0.4 mL 20 mg subcut QWEEK 04/12/24 12/29/24 Unknown History subcutaneous pen injector (Kesimpta Pen) Exam Exam Date and Time: 01/19/25 1025 Height,Weight and Vital Signs: Height 5 ft 5 in Weight 59.421 kg Height 5 ft 5 in Weight 60.2 kg Vital Signs Temperature 97 F 01/19/25 08:56 Pulse Rate 83 01/19/25 08:56 Respiratory Rate 20 01/19/25 08:56 Blood Pressure 108/79 01/19/25 08:56 Pulse Oximetry 98 01/19/25 08:56 Oxygen Delivery Method Room Air 01/19/25 08:56 Temperature 97 F 01/19/25 08:56 Pulse Rate 83 01/19/25 08:56 Respiratory Rate 20 01/19/25 08:56 Blood Pressure 108/79 01/19/25 08:56 Pulse Oximetry 98 01/19/25 08:56 Oxygen Delivery Method Room Air 01/19/25 08:56 Airway Mallampati Class: I TM Dist: >3cm Neck ROM: Full Loose/Missing/Broken Teeth: No (patient denies any loose or broken teeth) Heart: S1S2 Lungs: CTAB Assessment and Plan Assessment Anesthesia Assessment: Anesthesia Plan Discussed and Chart Reviewed Final Anesthetic Review Family History of Problems with Anesthesia: No History of Problems with Anesthesia: No NPO: Yes ASA Class: II Final Preanesthetic Review: No Changes in Pt Med Stat, Meds/Allgs Chart Reviewed, Consent Obtained/Reviewed and Anes Risks/Benef Reviewed Patient Risk: Low Procedure Risk: Low Anesthetic Plan Anesthetic Plan: GA and Agree w/ Assess. and Plan Disposition: Standard PACU
--- NOTE | 2025-01-19 10:26 | MHC.SHP ---
Pre-Procedural Eval Section A - 24 Hr Update-Section A only Date of Service: 01/19/25 The patient is an INPATIENT: No Changes since office visit: Yes Patient answered all questions; No Cold of Flu in the past 2 weeks, No New Medical Problems and No Changes in Medication The patient has been examined within 24 hours of the surgical procedure. The History & Physical has been completed within 30 days and I have reviewed it.: Yes Section B - Complete if H&P > 30 days Chief Complaint: Ventral hernia without obstruction or gangrene Allergies: Allergies Allergy/AdvReac Type Severity Reaction Status Date / Time No Known Allergies Allergy Verified 12/29/24 14:06 Plan Diagnosis/Plan: Unchanged I have reviewed the history and physical and performed a pertinent physical examination on my patient. No changes have occurred unless specified. Time Spent With Patient Time: Total time managing care of this patient today ____ minutes.
--- NOTE | 2025-01-19 11:15 | W.PM.OPN ---
Operative Note Operative Note Date of Service: 01/19/25 Narrative: Preoperative diagnosis: Ventral hernia, reducible, 1.5 cm diameter Postoperative diagnosis: Same Procedure: Repair of reducible ventral hernia with mesh Surgeon: Bright Wills MD Weatherization Crew Leader: Meaghan Glaser PA-C; MARY Castaneda Anesthesia: General LMA Indications for procedure: 39-year-old female patient presenting with a palpable lump located above the umbilicus which increases in size with lifting causes some mild discomfort. On examination the hernia is reducible with light pressure measures approximately 1.5 cm in diameter. Operative findings: 1.5 cm ventral hernia located above the umbilicus Specimen: None Estimated blood loss: Less than 2 mL Complications: None Procedure details: Patient was brought to the OR placed in a supine position. After administering general anesthesia the patient's abdomen was prepped with ChloraPrep and draped in a sterile fashion. A surgical time-out was called the consent confirmed. Patient received preoperative antibiotics and Venodyne boots were place. Local anesthesia consisting of 0.5% Sensorcaine was infiltrated in the midline above the umbilicus. A midline incision was then created with a scalpel and carried out through subcutaneous tissue up to the hernia sac. The sac was then dissected circumferentially down to the fascial defect. The sac was then reduced into the abdominal cavity. A preperitoneal space was then created using blunt dissection and electrocautery. A 4.3 cm round Ventralex mesh was then obtained. This was deployed within the preperitoneal space and secured in 4 quadrants using a 1 Tycron suture. The fascia was then closed over the mesh using [id number] 1 Tycron sutures. Wounds were irrigated with saline solution and suctioned dry. Cutaneous tissue and dermis were then reapproximated using interrupted 3-0 Polysorb sutures. Skin was closed using a running subcuticular 4-0 Polysorb suture. Steri-Strips, 4 x 4 gauze and Tegaderm were then applied. The patient tolerated the procedure well. Sponge, instrument, and needle counts were reported as correct. The patient was transferred to PACU in stable condition.
[2025-01-19 11:24] VITALS: BP 103/59; PULSE 72; RESP 14; TEMP 36.6; O2SAT 100
[2025-01-19 11:29] VITALS: BP 114/66; PULSE 75; RESP 14; O2SAT 99
[2025-01-19 11:34] VITALS: BP 108/66; PULSE 77; RESP 16; O2SAT 99
[2025-01-19 11:39] VITALS: BP 103/64; PULSE 80; RESP 16; O2SAT 99
[2025-01-19 11:44] VITALS: BP 117/67; PULSE 78; RESP 16; TEMP 37.3; O2SAT 99
== END 2025-01-19 12:50 | disposition home or self-care (01) ==
PROVIDERS: PCP Internal Medicine; Visit Provider Surgery
PROC: (CPT 49591; principal; 2025-01-19 10:30)
DX: K43.9 Ventral hernia without obstruction or gangrene (principal); G35 Multiple sclerosis; E55.9 Vitamin D deficiency, unspecified; Z79.899 Other long term (current) drug therapy; Z98.51 Tubal ligation status
CPT/HCPCS: 49591; C1781; C9088; J0690; J1100; J1885; J2003; J2250; J2405; J2704; J3010

== ENCOUNTER → 2025-01-19 08:21 | Outpatient (BNV) | payer BC, SELFPAY | PROVIDERS: PCP Internal Medicine; Visit Provider Surgery | DX: K43.2 Incisional hernia without obstruction or gangrene (principal) | CPT/HCPCS: 49591 ==

== ENCOUNTER 2025-01-30 12:24 | Outpatient (AMB) | payer BC, SELFPAY ==
[2025-01-30 12:44] VITALS: BP 100/60; PULSE 72
--- NOTE | 2025-01-30 12:44 | MHC.OFFVIS ---
Vital Signs 01/30/25 12:44 Weight 130 lb BP 100/60 Blood Pressure Location Lt brachial Position Sitting Pulse 72 Intake Visit Reasons: S/P ventral hernia Intake Note: Pt states, I'm here for my surgery follow up. c/o some tenderness at times but mostly feeling fine. Turkey Farmer Required: No Allergies No Known Allergies Allergy (Verified 01/30/25 12:46) Medication List - Last Reconciled 01/30/25 by Jose Antony, RN cholecalciferol (vitamin D3) 25 mcg PO DAILY 90 days ofatumumab (Kesimpta Pen) 20 mg subcut QWEEK HPI HPI S/P ventral hernia: Details: Patient reports she is doing well. Experiencing intermittent 3/10 pain with ambulation. States this is improving, using OTC ibuprofen as needed Denies fever, chills. Reports appetite at baseline. Reports her last bowel movement was the thursday after the procedure. States she does deal with chronic constipation, 2-3 BM per week at baseline. Has been using stool softener that has not really helped. She left the steri strips in place. Endorses mild pain at the incision site. ON LICENSE OF [facility] Medical History Multiple sclerosis Surgical History Hx of ventral hernia repair (01/19/25) H/O tubal ligation Family History Father Heart problem Mother Osteoporosis Other Diabetes HTN (hypertension) Social History Housing: House Alcohol intake: current Alcohol intake frequency: does not drink Alcohol type: other Patient Tobacco Use Status: Never used Tobacco e-Cigarette/Vaping Use: Never Used Second Hand Smoke Exposure: No service: No Current occupational status: employed Current occupational exposures/hazards: No Cognitive needs: No Hearing needs: No Vision needs: No Review of Systems Const All systems reviewed & are unremarkable except as noted in HPI and below Physical Exam Vital Signs: Last Vital Signs Pulse 72 01/30/25 12:44 BP 100/60 01/30/25 12:44 Const General: comfortable and no acute distress Orientation/consciousness: patient oriented x3 Resp Effort & Inspection: normal respiratory effort and able to speak in complete sentences GI Other: incision sites clean dry and intact, no palpable fluid collection, no surrounding erythema. Scant serous drainage at the incision site. Inspection: Yes normal to inspection and No distended Palpation (GI): Soft to palpation, not firm, Tenderness to palpation present (GI) (mild inicisonal), no guarding and not rigid Neuro General: patient oriented x3 Assessment & Plan Assessment & Plan (1) S/P repair of ventral hernia: Code(s): Z98.890 - Other specified postprocedural states; Z87.19 - Personal history of other diseases of the digestive system Category: Surgical (2) Constipation: Code(s): K59.00 - Constipation, unspecified Category: Medical Qualifiers: Constipation type: unspecified constipation type Qualified Code(s): K59.00 - Constipation, unspecified Plan 39 year old female s/p ventral hernia repair with mesh on 01/19/25. Patient is overall doing well. Continues to experience mild pain at the incision site. Also experiencing constipation. She has been using stool softener without BM, will send for miralax. Instructed patient to take one packet daily until she produces a bowel movement, then switching to every other day for maintenance. Recommended increasing hydration and dietary fiber intake as well. Patients abdominal exam is soft and benign, incision site healing well. No concern for infection at this time. Will continue with activity restrictions no heavy lifting >15 pounds until her next visit. Recommended no submerging of incision, she is okay to shower. Patient will follow up in the office in 2 weeks for routine follow up. Can return sooner for any concerns prior. Medications: New polyethylene glycol 3350 (Miralax) 17 grams PO DAILY 30 ea 0RF Coding Level of Care Code Global (95712) Diagnoses S/P repair of ventral hernia Z98.890; Z87.19 Constipation, unspecified constipation type K59.00 Constipation type: unspecified constipation type
== END 2025-01-30 12:43 | disposition home or self-care (01) ==
LOC: HO.HGS 12:25
PROVIDERS: PCP Internal Medicine
DX: K59.00 Constipation, unspecified (principal); Z09 Encounter for follow-up examination after completed treatment for conditions other than malignant neoplasm
CPT/HCPCS: 99213

== ENCOUNTER 2025-02-13 12:50 | Outpatient (AMB) | payer BC, SELFPAY ==
--- NOTE | 2025-02-13 12:53 | A.OFFVIS_ITS ---
Vital Signs 02/13/25 12:57 Weight 131 lb BP 110/62 Blood Pressure Location Rt brachial Position Sitting Pulse 73 Intake Visit Reasons: 2wk S/P ventral hernia Intake Note: Patient is seen in office for 2 weeks follow up visit, post ventral hernia. Pt c/o: no concerns. Reports incision site healed well. No longer taking rx pain meds. Credit Charge Authorizer Required: No Accompanied by: Self / Same As Patient Allergies No Known Allergies Allergy (Verified 02/13/25 12:57) HPI HPI 2wk S/P ventral hernia: Details: Patient reports she is doing well. No longer having any pain. She does feel a hard bump under the incision site. Denies drainage. Denies fever, chills. She reports she took one-week of daily MiraLax which did produce a bowel movement by the end of the week. She reports that she has not been taking the MiraLax since and has bowel movements every couple of days but they have become more soft. She has returned to work, but this is not require heavy lifting. She is wondering about when she can return to activity. [facility] Medical History Multiple sclerosis Surgical History Hx of ventral hernia repair (01/19/25) H/O tubal ligation Family History Father Heart problem Mother Osteoporosis Other Diabetes HTN (hypertension) Social History Housing: House Alcohol intake: current Alcohol intake frequency: does not drink Alcohol type: other Patient Tobacco Use Status: Never used Tobacco e-Cigarette/Vaping Use: Never Used Second Hand Smoke Exposure: No service: No Current occupational status: employed Current occupational exposures/hazards: No Cognitive needs: No Hearing needs: No Vision needs: No Review of Systems Const All systems reviewed & are unremarkable except as noted in HPI and below Physical Exam Vital Signs: Last Vital Signs Pulse 73 02/13/25 12:57 BP 110/62 02/13/25 12:57 Const General: comfortable and no acute distress Orientation/consciousness: patient oriented x3 Resp Effort & Inspection: normal respiratory effort and able to speak in complete sentences GI Other: Ventral hernia repair site: Incision is intact no surrounding erythema, no palpable fluid collection. Nontender. There is small formation of scar tissue under the hernia repair site Inspection: No distended Palpation (GI): Soft to palpation, not firm, nontender, no guarding and not rigid Neuro General: patient oriented x3 Assessment & Plan Assessment & Plan (1) S/P repair of ventral hernia: Code(s): Z98.890 - Other specified postprocedural states; Z87.19 - Personal history of other diseases of the digestive system Category: Medical (2) Constipation: Code(s): K59.00 - Constipation, unspecified Category: Medical Qualifiers: Constipation type: unspecified constipation type Qualified Code(s): K59.00 - Constipation, unspecified Plan 39-year-old female s/p ventral hernia repair with mesh on 01/19/2025 presenting to the office for one-month follow-up. Patient is doing well, she is no longer having any pain. Her only concern is the hard lump she feels underneath hernia. I reassured her that this is scar tissue from the hernia repair and will likely go away over the next month or so. Recommended hot compress to help facilitate some of the softening. Appetite and bowel function are at baseline. We discu ssed her constipation, which has improved with MiraLax. I recommended that she could take MiraLax 1-2 times per week to keep her bowel movements regular and soft. Additionally adequate hydration and fiber intake recommended. Patient agreeable to this plan. We will also follow up with PCP regarding this. On exam her abdomen is soft and benign, the incision appears to be healing well, no concern for infection. In regards to her activity restrictions, we will lift all current activity restrictions. I recommended that she slowly returned to her baseline level of activity. At this time patient no longer requiring follow up, she can follow up as needed with any future concerns. Coding Level of Care Code Est Pt Level 3 (30156) Diagnoses S/P repair of ventral hernia Z98.890; Z87.19 Constipation, unspecified constipation type K59.00 Constipation type: unspecified constipation type
[2025-02-13 12:57] VITALS: BP 110/62; PULSE 73
== END 2025-02-13 13:24 | disposition home or self-care (01) ==
LOC: HO.HGS 12:51
PROVIDERS: PCP Internal Medicine
DX: Z98.890 Other specified postprocedural states (principal); Z87.19 Personal history of other diseases of the digestive system; K59.00 Constipation, unspecified
CPT/HCPCS: 99213

== ENCOUNTER 2025-06-21 08:52 | Outpatient (AMB) | payer BC, SELFPAY ==
[2025-06-21 09:03] VITALS: BP 104/66; PULSE 67; TEMP 36.1; O2SAT 99; BMI 22.0
--- NOTE | 2025-06-21 09:03 | MHC.PC.OV ---
Vital Signs 06/21/25 09:03 Height 5 ft 5 in Weight 132 lb 8 oz BMI 22.0 BP 104/66 Blood Pressure Location Lt brachial Position Sitting Pulse 67 Pulse Source Pulse Oximeter Temp 97.0 F Temp Source Temporal Artery Scan Pulse Oximetry (%) 99 Oxygen Delivery Method Room Air Intake Visit Reasons: pe Collar Worker Required: No Accompanied by: Self / Same As Patient Allergies No Known Allergies Allergy (Verified 06/21/25 09:17) Medication List - Last Reconciled 06/21/25 by Sade Reddy MD cholecalciferol (vitamin D3) 25 mcg PO DAILY 90 days ofatumumab (Kesimpta Pen) 20 mg subcut QWEEK polyethylene glycol 3350 (Miralax) 17 grams PO DAILY Tobacco use date assessed: 06/21/25 Dental Screening Dental Screen Date: 06/21/25 Did you have a dental visit in the last 12 months?: Yes Did you have a dental problem in the last 6 months where you did not have access to dental care?: No Was dental information given to patient?: Patient has dentist HPI HPI Comments History of Present Illness Details The patient is a 39-year-old female presenting for a physical exam. The patient has a history of multiple sclerosis for which she is followed by neurology and is treated with Kesimpta. She reports no new flares or lesions since her last MRI and tolerates the medication well, with only a local injection site reaction. Her next MRI is scheduled for August. Past surgical history is significant for a ventral hernia repair and a tubal ligation. A prior ultrasound or CT scan incidentally found a small, fat-containing umbilical hernia. She reports a history of constipation, which is managed with MiraLAX as needed with good effect. She has a history of low vitamin D and is on supplementation. She reports minimal depression, which she attributes to a recent breakup. Family history is notable for a father who at age 56 from a heart problem and a mother who is alive with osteoporosis. The patient is up-to-date with her Pap smear, which was completed in February. Her last tetanus vaccine was in 2013, and she is now due for a booster. She had a mammogram last year and is due for her annual screening. [facility] Medical History Multiple sclerosis Surgical History Hx of ventral hernia repair (01/19/25) H/O tubal ligation Family History Father Heart problem Mother Osteoporosis Other Diabetes HTN (hypertension) Social History (Updated 06/21/25 @ 09:22 by Sade Reddy MD) Housing: House Alcohol intake: current Alcohol intake frequency: does not drink Alcohol type: other Patient Tobacco Use Status: Never used Tobacco e-Cigarette/Vaping Use: Never Used Second Hand Smoke Exposure: No service: No Current occupational status: employed Current occupational exposures/hazards: No Cognitive needs: No Hearing needs: No Vision needs: No Questionnaire PHQ-9 Over the last 2 weeks, how often have you been bothered by any of the following problems? 1. Little interest or pleasure in doing things: several days 2. Feeling down, depressed, or hopeless: several days 3. Trouble falling or staying asleep, or sleeping too much: not at all 4. Feeling tired or having little energy: several days 5. Poor appetite or overeating: not at all 6. Feeling bad about yourself - or that you are a failure or have let yourself or your family down: several days 7. Trouble concentrating on things, such as reading the newspaper or watching television: not at all 8. Moving or speaking so slowly that other people could have noticed. Or the opposite - being so fidgety or restless that you have been moving around a lot more than usual: not at all 9. Thoughts that you would be better off or of hurting yourself in some way: not at all Total score: 4 Depression Screening Interpretation: Positive Depression Screening Follow-up: Existing condition and Follow-up Visit Requested Depression Screening Done: Yes 66560 - PHQ-9 Billing: Yes Source: Developed by Drs. Keenan Luu, Cassidy Singh, Italo Dubon and colleagues, with an educational lina from [employer]. Thrive Questionnaire Date Thrive assessed: 06/14/25 I am a: Patient What is your living situation today?: I have a steady place to live Within the past 12 months, did the food you bought not last and you didn't have the money to get more?: Never true Within the past 12 months, did you worry whether your food would run out before you got money to buy more?: Never true Do you have trouble paying for medicines?: No Do you have trouble getting transportation to medical appointments?: No Do you have trouble paying your heating and electricity bill?: No Do you have trouble taking care of your child, family member or friend?: No Do you have trouble with day-to-day activities such as bathing, preparing meals, shopping, managing finances, etc.?: No Are you currently unemployed and looking for a job?: No Are you interested in more education?: No Please select the resources that you would like help with: None Currently or been in a relationship where the following occur: No concerns reported THRIVE Score: 0 AUDIT C Alcohol Use Questionnaire (AUDIT-C) 1. How often do you have a drink containing alcohol?: Monthly or less 2. How many drinks containing alcohol do you have on a typical day when you are drinking?: 1 or 2 3. How often do you have six or more drinks on one occasion?: Never Total Score: 1 Score Reviewed/Action Taken: No YAS-7 AMB Questionnaire YAS-7 Date YAS - 7 assessed: 11/29/24 Feeling nervous, anxious, or on edge: 0 = Not at all Not being able to stop or control worryin = Not at all Worrying too much about different things: 1 = Several days Trouble relaxin = Not at all Being so restless that it is hard to sit still: 0 = Not at all Becoming easily annoyed or irritable: 1 = Several days Feeling afraid as if something awful might happen: 0 = Not at all Total YAS-7 score (0-4 normal; 5-9 mild; 10-14 moderate; 15-21 severe): 2 Source: Developed by Drs. Keenan Luu, Cassidy Singh, Italo Dubon and colleagues, with an educational lina from [employer]. YAS-7 Assessment Billing YAS-7 Assessment Tool: YAS-7 Assessment 34727 Review of Systems Const All systems reviewed & are unremarkable except as noted in HPI and below Card Denies chest pain at rest, Denies chest pain with activity, Denies edema, Denies irregular heart rhythm, Denies claudication, Denies dyspnea, Denies dyspnea on exertion, Denies orthopnea, Denies paroxysmal nocturnal dyspnea and Denies slow heart rate Resp Denies cough, Denies dyspnea and Denies dyspnea on exertion Neuro Denies lack of coordination Physical exam (Primary Care) Vital Signs: Last Vital Signs Temp 97.0 F 06/21/25 09:03 Pulse 67 06/21/25 09:03 BP 104/66 06/21/25 09:03 Pulse Ox 99 06/21/25 09:03 Oxygen Delivery Method Room Air 06/21/25 09:03 BMI result Body Mass Index 22.0 Tobacco/Smoking Status: Tobacco use Status Tobacco use date assessed 06/21/25 06/21/25 09:06 Patient Tobacco Use Status Never used Tobacco 06/21/25 09:22 e-Cigarette/Vaping Use Never Used 06/21/25 09:22 PHQ-9: PHQ-9 Score PHQ-9: Total score 4 06/21/25 09:23 Depression Screening Interpretation: Positive Depression Screening Follow-up: Existing condition and Follow-up Visit Requested Thrive Assessment: Date of Thrive Assessment Date Thrive assessed 06/14/25 06/21/25 09:06 Currently or been in a relationship where the following occur: No concerns reported Const Orientation/consciousness: patient oriented x3 HENMN Head: Yes normal to inspection, Yes normocephalic and Yes atraumatic Ears: external ears normal Eyes General: appearance normal, both eyes and all related structures Eyelids: Yes eyelids normal Conjunctivae: conjunctivae normal Neck Neck: Yes normal visual inspection and Yes supple Resp Effort & Inspection: normal respiratory effort Auscultation: clear to auscultation bilaterally Cardio Jugular venous distension: no JVD Rate: regular rate Rhythm: regular rhythm Heart sounds: S1 normal heart sound present and S2 normal heart sound present GI Inspection: Yes normal to inspection Palpation (GI): Soft to palpation and nontender Auscultation: normal bowel sounds Skin General skin exam: no rashes or lesions noted Neuro General: patient oriented x3 and no focal motor deficits Extrem General: Yes full ROM Psych Appearance: grossly normal Immunizations Boostrix Tdap 2.5 Lf unit-8 mcg-5 Lf/0.5 mL intramuscular syringe Performing Provider: Sade Reddy MD Performing Location: [facility] Administered by: RORO Calderon on 06/21/25 09:32 Dose Route Admin Location Dispensed Lot Number Expiration Date NDC Wet Pan Operator 0.5 mL IM Right Deltoid 0.5 mL [id number] 11/11/27 26964-346-62 [employer] Total Dispensed Waste 0.5 mL 0 % VIS Given Date VIS Provided VIS Publication Date 06/21/25 Single Vaccine 21 Eligibility Eligibility Date Funding Source Not [facility] Eligible 06/21/25 Private Coding Level of Care Code Est Pt Prev Care 40-64y(02038) Diagnoses Physical exam Z00.00 Multiple sclerosis G35 Mild major depression F32.0 Additional Codes PHQ-9 - 33762 - PHQ-9 Billing: Yes ([id number]) YAS-7 Assessment Billing - YAS-7 Assessment Tool: YAS-7 Assessment 44193 ([id number]) Time Spent (min) 30 Assessment & Plan Assessment & Plan (1) Physical exam: Code(s): Z00.00 - Encounter for general adult medical examination without abnormal findings Category: Medical (2) Multiple sclerosis: Code(s): G35 - Multiple sclerosis Category: Medical (3) Mild major depression: Code(s): F32.0 - Major depressive disorder, single episode, mild Category: Medical Plan Plan 1. Plan 1. Encounter for general adult medical examination without abnormal findings Z00.00 Repeat in a year. 2.Multiple sclerosis, unspecified G35.D The patient's multiple sclerosis is stable, with no reported flares or new lesions on her last MRI. She will continue treatment with Kesimpta, which is well-tolerated, and follow up with neurology. Her next MRI is scheduled for August. 3. Depression, unspecified F32.A The patient reports minimal depression related to a recent breakup, and no specific intervention is planned at this time. Orders: Orders MM tomosynthesis screening BI Today Z12.31 - Encounter for screening mammogram for malignant neoplasm of breast TDaP Immunization Today Z23 - Encounter for immunization
--- OUTSIDE RECORDS SUMMARY | 2025-06-21 09:24 | XMS_ITS | Encounter Summary ---
Author Organization [facility] Address [address] [place] [phone] Phone Care Team Providers Care Educational Psychology Teacher Name Role Phone Sade Ferrara MD Primary Care Provid er Encounter Details Date Type Department Care Team (Late st Contact Info) Description 01/20/2024 Procedure Pass [facility] MR Imaging, [address] [place] [address] Social History Tobacco Use Types Packs/Day Years Used Date Smoking Tobacco: Never Smokeless Tobacco: Never Education Answer Date Recorded Are you interested in more education? Not on eryn e 12/29/2023 Are you concerned about learning? Not on file 12/29/2023 No 12/29/2023 No 12/29/2023 Digital Access Answer Date Recorded No 12/29/2023 No 12/29/2023 Reliable internet access at home? Not on file 12/29/2023 Device with a working camera? Not on file Comments Unknown Sex and Gender Information Value Date Recorded Sex Assigned at Female 12/29/2023 12:22 PM EDT Legal Sex Female 12:19 PM EDT Gender Identity Female 12/29/2023 12:22 PM EDT Sexual Orientation Straight 12/29/2023 12 :22 PM EDT documented as of this encounter Plan of Treatment Upcoming Encounters Date Type Department Care Team (Late st Contact Info) Description 02/22/2025 Procedure Pass [facility] MR Imaging, [address] [place] [address] 02/22/2025 Procedure Pass [facility] MR Imaging, [address] [place] [address] 02/22/2025 Procedure Pass [facility] MR Imaging, [address] [place] [address] 09/13/2025 12:00 PM EST Appointment [facility] Imaging, [address] [place] [address] Will Purcell MD [address] [id number] [email or web address] 09/13/2025 2:00 PM EST Office Visit [facility], Department of Neurology [address] [place] [address] Will Purcell MD [address] [address] [email or web address] documented as of this encounter Visit Diagnoses Not on filedocumented in this encounter Care Teams Educational Psychology Teacher Relationship Specialty Start Date End Date Sade Ferrara MD [address] [place] [address] PCP - General Internal Medicine 12/29/23 documented as of this encounter Additional Source Comments The information contained in this document represents components of the legal health record. It is not the complete legal health record.[email or web address]
--- OUTSIDE RECORDS SUMMARY | 2025-06-21 09:24 | XMS_ITS | Clinical Summary ---
Author Organization [facility] Address [address] [place] [address] Phone Care Team Providers Care Victorian Literature Professor Name Role Phone Sade Ferrara MD Primary Care Provid er Allergies No known active allergies Medications ofatumumab (KESIMPTA PEN) 20 mg/0.4 mL PnIj Inject 20 mg under the skin every 28 days. 0.4 mL 11 08/25/2024 Active Social History Tobacco Use Types Packs/Day Years Used Date Smoking Tobacco: Never Smokeless Tobacco: Never Tobacco Cessation:Counseling Given: Not Answered Education Answer Date Recorded Are you interested [...] Orientation Straight 12/29/2023 12 :22 PM EDT Last Filed Vital Signs Vital Sign Reading Time Taken Comments Blood Pressure 101/59 02/22/2025 2:49 PM EDT Pulse 64 02/22/2025 2:49 PM EDT Temperature 37 C (98.6 F) 02/22/2025 2:49 PM EDT Respiratory Rate 16 02/22/2025 2:49 PM EDT Oxygen Saturation 100% 02/22/2025 2:49 PM EDT Inhaled Oxygen Concentration - - Weight 59.4 kg (131 lb) 02/22/2025 2:49 PM EDT Height 165.1 cm (5' 5 ) 02/22/2025 2:49 PM EDT Body Mass Index 21.8 02/22/2025 2:49 PM EDT Plan of Treatment Upcoming Encounters Date Type Department Care Team (Late st Contact Info) Description 02/22/2025 Procedure Pass [facility] MR Imaging, [address] [place] [address] 02/22/2025 Procedure Pass [facility] MR Imaging, [address] [place] [address] 02/22/2025 Procedure Pass [facility] MR Imaging, [address] [address] 09/13/2025 12:00 PM EST Appointment [facility] MR Imaging, [address] [place] [address] Will Purcell MD [address] [address] [email or web address] 09/13/2025 2:00 PM EST Office Visit [facility], Department of Neurology [address] [place] [address] Will Purcell MD [address] [address] [email or web address] Maintenance Due Date Last Done Comments HEPATITIS C SCREENING 12/25/2001 HIV ONE-TIME SCREENING (18-6 5 YEARS) 12/25/2001 PAP SMEAR 12/25/2004 MAMMOGRAM 2023 Adult Td,Tdap Booster 04/24/2024 04/24/2014 DEPRESSION SCREENING 01/14/2025 01/15/2024 INFLUENZA VACCINE (#1) 2025 06/19/2020 COVID-19 VACCINE (1 - 5-2 6 season) 2025 SMOKING STATUS SCREENING (On ce After 26 Yrs) Completed 02/22/2025 HEPATITIS A VACCINES Aged Out No long er eligible based on patient's age to complete this topic HIB VACCINES Aged Out No longer eligi ble based on patient's age to complete this topic MENINGOCOCCAL VACCINES (ACWY) Aged Out No longer eligible based on patient's age to complete this topic MENINGOCOCCAL VACCINES (B) Aged Out N o longer eligible based on patient's age to complete this topic PNEUMOCOCCAL VACCINES (0-49 years) Aged Out No longer eligible based on patient's age to complete this topic Medical Devices Not on file [place] [address] [place] [address] [place] [address] [facility] Care Teams Victorian Literature Professor Relationship Specialty Start Date End Date Sade Ferrara MD [address] [place] [phone] PCP - General Internal Medicine 12/29/23 Additional Source Comments The information contained in this document represents components of the legal health record. It is not the complete legal health record.[facility]
--- OUTSIDE RECORDS SUMMARY | 2025-06-21 09:24 | XMS_ITS | Encounter Summary ---
Author Organization [facility] Address [address] [place] [phone] Phone Care Team Providers Care Sheet Metal Duct Installer Helper Name Role Phone Sade Ferrara MD Primary Care Provid er Encounter Details Date Type Department Care Team (Late st Contact Info) Description 01/20/2024 Procedure Pass [facility] MR Imaging, [address] [place] [address] Social History Tobacco Use Types Packs/Day Years [...] st Contact Info) Description 02/22/2025 Procedure Pass [facility] MR Imaging, [address] [place] [address] 02/22/2025 Procedure Pass [facility] MR Imaging, [address] [place] [address] 02/22/2025 Procedure Pass [facility] MR Imaging, [address] [place] [address] 09/13/2025 12:00 PM EST Appointment [facility] Imaging, [address] [place] [address] Will Purcell MD [address] [address] [email or web address] 09/13/2025 2:00 PM EST Office Visit [facility], Department of Neurology [address] [place] [address] Will Purcell MD [address] [address] [email or web address] documented as of this encounter Visit Diagnoses Not on filedocumented in this encounter Care Teams Sheet Metal Duct Installer Helper Relationship Specialty Start Date End Date Sade Ferrara MD 5 [place] [address] PCP - General Internal Medicine 12/29/23 documented as of this encounter Additional Source Comments The information contained in this document represents components of the legal health record. It is not the complete legal health record.[facility]
--- OUTSIDE RECORDS SUMMARY | 2025-06-21 09:24 | XMS_ITS | Encounter Summary ---
Author Organization [facility] Address [address] [place] [address] Care Team Providers Care Delivery Rep Name Role Phone Sade Reddy MD Primary Care Provider [phone] Encounter Details Date Type Department Care Team (Latest Contact Info) Description 03/27/2025 Lab Requisition [facility] - Main Lab [address] [place] [address] Marilee Euceda MD 299 [facility] [address] [place] [address] Encounter for screening for infections with a predominantly sexual mode of transmission Social History Tobacco Use Types Packs/Day Years Used Date Smoking Tobacco: Never Assessed Comments Unknown Sex and Gender Information Value Date Recorded Sex Assigned at Not on file Legal Sex Female 4:38 AM EST Gender Identity Not on file Sexual Orientation Not on file documented as of this encounter Plan of Treatment Not on file documented as of this encounter Procedures Procedure Name Priority Date/Time Associated Diagnosis Comments CHLAMYDIA TRACHOMATIS AND NEISSERIA GONORRHOEAE PCR Routine 03/27/2025 12:00 AM EDT Encounter for screening for infections with a predominantly sexual mode of transmission documented in this encounter Results * Chlamydia trachomatis and Neisseria gonorrhoeae molecular study (03/27/2025 12:00 AM EDT) Neisseria gonorrhoeae PCR Negative Negative LAB MOLECULAR DIAGNOSTICS METHOD 03/28/2025 12:41 PM EDT [facility] Chlamydia trachomatis PCR Negative Negative LAB MOLECULAR DIAGNOSTICS METHOD 03/28/2025 12:41 PM EDT [facility] Swab Cervix uteri structure / Unknown 03/27/2025 03/27/2025 12:17 PM EDT us Marilee Euceda MD LAB MICROBIOLOGY - GENER AL ORDERABLES Final Result [facility] [address] [place] [address], [place] [phone] documented in this encounter Visit Diagnoses Diagnosis Encounter for screening for infections with a predominantly sexual mode of transmission documented in this encounter Care Teams Delivery Rep Relationship Specialty Start Date End Date Sade Reddy MD 2 [facility] , [address] [facility] Physician Associ D/B/A: [facility] [place] PCP - General Internal Medicine 03/28/25 documented as of this encounter
--- OUTSIDE RECORDS SUMMARY | 2025-06-21 09:24 | XMS_ITS | Clinical Summary ---
Author Organization [address] [facility] Address [address] [place] [address] Phone Care Team Providers Care Clin Nurse Name Role Phone Sade Reddy MD Primary Care Provider [phone] Encounters Date Type Department Care Team Description 03/28/2025 Lab Requisition [facility] Lab [address] [place] [address] Marilee Euceda MD Encounter for gynecological examination (general) (routine) without abnormal findings 03/27/2025 Lab Requisition [facility] Lab [address] [place] [address] Marilee Euceda MD Encounter for screening for infections with a predominantly sexual mode of transmission from Last 3 Months Social History Tobacco Use Types Packs/Day Years Used Date Smoking Tobacco: Never Assessed Comments Unknown Sex and Gender Information Value Date Recorded Sex Assigned at Not on file Legal Sex Female 4:38 AM EST Gender Identity Not on file Sexual Orientation Not on file Plan of Treatment Health Maintenance Due Date Last Done Comments Breast Cancer Screening 1983 DTaP,Tdap,and Td Vaccines (1 - Tdap) 12/25/2002 Hepatitis B Vaccines (1 of 3 - 19+ 3-dose series) 12/25/2002 HPV Vaccines (1 - 3-dose SCD M series) 12/25/2010 Depression Screening 08/17/2024 HIV Screening 03/27/2025 Hepatitis C Screening 03/27/2025 Social Influencers of Health Screening 03/27/2025 COVID-19 Vaccine (1 - 2023-2 5 season) 2025 Influenza Vaccine (#1) 2025 Cervical Cancer Screening: HPV 03/27/2030 03/27/2025 RSV Immunization Adult Patie nts (1 - 1-dose 75+ series) 12/25/2058 HIB Vaccines Aged Out No longer eligi ble based on patient's age to complete this topic Hepatitis A Vaccines Aged Out No long er eligible based on patient's age to complete this topic IPV Vaccines Aged Out No longer eligi ble based on patient's age to complete this topic MMR Vaccines Aged Out No longer eligi ble based on patient's age to complete this topic Meningococcal ACWY Vaccine Aged Out N o longer eligible based on patient's age to complete this topic Meningococcal B Vaccine Aged Out No l onger eligible based on patient's age to complete this topic Pneumococcal Vaccine: Pediat rics (0 to 5 Years) and At-Risk Patients (6 to 49 Years) Aged Out No longer eligi ble based on patient's age to complete this topic RSV Immunization Patients Un giancarlo 20 months Aged Out No longer eligible b ased on patient's age to complete this topic Varicella Vaccines Aged Out No longer eligible based on patient's age to complete this topic Procedures Procedure Name Priority Date/Time Associated Diagnosis Comments PAP SMEAR Routine 03/27/2025 12:00 PM EDT Encounter for gynecological examination (general) (routine) without abnormal findings HPV WITH REFLEX GENOTYPE Routine 03/27/2025 12:00 PM EDT Encounter for gynecological examination (general) (routine) without abnormal findings CHLAMYDIA TRACHOMATIS AND NEISSERIA GONORRHOEAE PCR Routine 03/27/2025 12:00 AM EDT Encounter for screening for infections with a predominantly sexual mode of transmission from Last 3 Months Results * HPV with reflex genotype (03/27/2025 12:00 PM EDT) HPV Negative Negative LAB MICROBIOLOGY METHOD 03/28/2025 1:10 PM EDT [facility] Brushing/Spatula Cervix uteri structure / Unknown 03/27/2025 12:00 PM EDT 03/28/2025 6:40 AM EDT us Marilee Euceda MD LAB MOLECULAR DIAGNOSTIC S ORDERABLES Final Result [facility] [address] [place] [address], [place] [phone] * Pap smear (03/27/2025 12:00 PM EDT) Interpretation Negative for intraepithelial lesion or malignancy 04/03/2025 4:00 PM EDT [facility] General Categorization Negative 04/03/2025 4:00 PM EDT [facility] LMP 02/26/2025 04/03/2025 4:00 PM EDT [facility] Specimen Adequacy Satisfactory for evaluation, endocervical/sun sformation zone component present 04/03/2025 4:00 PM EDT [facility] Pap Methodology Liquid Based Pap Test 04/03/2025 4:00 PM EDT [facility] Disclaimer The Pap test is a screening test which carries an inherent false negative rate. These test results should be correlated with the patient's clinical findings and history. This Pap test was processed using an automated screening system. Technical cytopathology services provided by [facility], at [address] [place] [address] (CLIA # [id number]/Umm Alas MD, Daycare Teacher.) 04/03/2025 4:00 PM EDT [facility] Console Pap Interpretation Reported 04/03/2025 4:00 PM EDT [facility] Brushing/Spatula Cervix uteri structure / Unknown 03/27/2025 12:00 PM EDT 03/28/2025 6:40 AM EDT Marilee Euceda MD LAB CYTOLOGY ORDERABLES Final Result [facility] [address] [place] [address], [place] [phone] * Chlamydia trachomatis and Neisseria gonorrhoeae molecular study (03/27/2025 12:00 AM EDT) Neisseria gonorrhoeae PCR Negative Negative LAB MOLECULAR DIAGNOSTICS METHOD 03/28/2025 12:41 PM EDT [facility] Chlamydia trachomatis PCR Negative Negative LAB MOLECULAR DIAGNOSTICS METHOD 03/28/2025 12:41 PM EDT [facility] Swab Cervix uteri structure / Unknown 03/27/2025 03/27/2025 12:17 PM EDT us Marilee Euceda MD LAB MICROBIOLOGY - GENER AL ORDERABLES Final Result [facility] [address] [place] [address], from Last 3 Months Insurance Care Teams Clin Nurse Relationship Specialty Start Date End Date Sade Reddy MD [address] [place] [address] , [address] Physician Associ D/B/A: [facility] [place] PCP - General Internal Medicine 03/28/25
--- OUTSIDE RECORDS SUMMARY | 2025-06-21 09:24 | XMS_ITS | Encounter Summary ---
Author Organization [facility] Address [address] [place] [address] Phone Care Team Providers Care Boat Carpenter Mechanic Name Role Phone Sade Ferrara MD Primary Care Provid er Encounter Details Date Type Department Care Team (Late st Contact Info) Description 01/20/2024 Procedure Pass [facility] MR Imaging, [address] [place] [address] Social History Tobacco Use Types Packs/Day Years [...] st Contact Info) Description 02/22/2025 Procedure Pass [facility] MR Imaging, [address] [place] [address] 02/22/2025 Procedure Pass [facility] MR Imaging, [address] [place] [address] 02/22/2025 Procedure Pass [facility] MR Imaging, [address] [place] [address] 09/13/2025 12:00 PM EST Appointment [facility] Imaging, [address] [place] [address] Will Purcell MD [address] [address] [email or web address] 09/13/2025 2:00 PM EST Office Visit [facility], Department of Neurology [address] [place] [address] Will Purcell MD [address] [address] [email or web address] documented as of this encounter Visit Diagnoses Not on filedocumented in this encounter Care Teams Boat Carpenter Mechanic Relationship Specialty Start Date End Date Sade Ferrara MD [address] [place] [address] PCP - General Internal Medicine 12/29/23 documented as of this encounter Additional Source Comments The information contained in this document represents components of the legal health record. It is not the complete legal health record.[facility]
--- OUTSIDE RECORDS SUMMARY | 2025-06-21 09:24 | XMS_ITS | Encounter Summary ---
Author Organization [facility] Address [address] [place] [address] Care Team Providers Care Cream Hauler Name Role Phone Sade Reddy MD Primary Care Provider [phone] Encounter Details Date Type Department Care Team (Latest Contact Info) Description 03/28/2025 Lab Requisition [facility] - Main Lab [address] [place] [address] Marilee Euceda MD 299 [facility] [address] [place] [address] Encounter for gynecological examination (general) (routine) without abnormal findings Social History Tobacco Use Types Packs/Day Years [...] Procedure Name Priority Date/Time Associated Diagnosis Comments HPV WITH REFLEX GENOTYPE Routine 03/27/2025 12:00 PM EDT Encounter for gynecological examination (general) (routine) without abnormal findings PAP SMEAR Routine 03/27/2025 12:00 PM EDT Encounter for gynecological examination (general) (routine) without abnormal findings documented in this encounter Results * HPV with reflex genotype (03/27/2025 12:00 PM EDT) HPV Negative Negative LAB MICROBIOLOGY METHOD 03/28/2025 1:10 PM EDT [facility] Brushing/Spatula Cervix uteri structure / Unknown 03/27/2025 12:00 PM EDT 03/28/2025 6:40 AM EDT us Marilee Euceda MD LAB MOLECULAR DIAGNOSTIC S ORDERABLES Final Result [facility] [address] [place] [address], * Pap smear (03/27/2025 12:00 PM EDT) Interpretation Negative for intraepithelial lesion or malignancy 04/03/2025 4:[address] [facility] General Categorization Negative 04/03/2025 4:[address] [facility] LMP 02/26/2025 04/03/2025 4:[address] [facility] Specimen Adequacy Satisfactory for evaluation, endocervical/sun sformation zone component present 04/03/2025 4:[address] [facility] Pap Methodology Liquid Based Pap Test 04/03/2025 4:[address] [facility] Disclaimer The Pap test is a screening test which carries an inherent false negative rate. These test results should be correlated with the patient's clinical findings and history. This Pap test was processed using an automated screening system. Technical cytopathology services provided by [facility], at [address] [place] [address] (CLIA # [id number]/Umm Alas MD, Kaiako K[place].) 04/03/2025 4:[address] [facility] Console Pap Interpretation Reported 04/03/2025 4:[address] [facility] Brushing/Spatula Cervix uteri structure / Unknown 03/27/2025 12:00 PM EDT 03/28/2025 6:40 AM EDT us Marilee Euceda MD LAB CYTOLOGY ORDERABLES Final Result [facility] [address] [place] [address], documented in this encounter Visit Diagnoses Diagnosis Encounter for gynecological examination (general) (routine) without abnormal findings documented in this encounter Care Teams Cream Hauler Relationship Specialty Start Date End Date Sade Reddy MD [facility] [address] [facility] Physician Associ D/B/A: [facility] [place] PCP - General Internal Medicine 03/28/25 documented as of this encounter
== END 2025-06-21 09:39 | disposition home or self-care (01) ==
LOC: HO.HMCH 08:53
PROVIDERS: PCP Internal Medicine; Visit Provider Internal Medicine
DX: Z00.00 Encounter for general adult medical examination without abnormal findings (principal); G35.D Multiple sclerosis, unspecified; F32.0 Major depressive disorder, single episode, mild; Z23 Encounter for immunization

== ENCOUNTER → 2025-06-21 08:52 | Outpatient (BNVA) | payer BC, SELFPAY | PROVIDERS: PCP Internal Medicine; Visit Provider Internal Medicine | DX: Z00.00 Encounter for general adult medical examination without abnormal findings (principal); G35.D Multiple sclerosis, unspecified; K59.00 Constipation, unspecified; F32.0 Major depressive disorder, single episode, mild; Z23 Encounter for immunization | CPT/HCPCS: 90471; 90715; 96127 ==